=== PATIENT | male | born 1955 | race Caucasian/White ===

== ENCOUNTER 2016-10-11 16:24 | Inpatient (IN) | payer BC ==
[~2016-10-11] VITALS: Ht 167.6 cm; Wt 84.8 kg
[2016-10-11 16:24] VITALS: BP_SYST 163
[~2016-10-11 16:24] MED LIST: ALPR0.2583 PO; ASPI81TA2 PO; CLOP75TA2 PO; LISI10TA5 PO; METO-442 PO; SIMV40TA5 PO
[2016-10-11] MEDS ORDERED: ASPIRIN 81 MG TAB.CHEW PO ONE (16:30)
[2016-10-11] MEDS ORDERED: FINA5TAB3 PO (16:37)
[2016-10-11] MEDS ORDERED: LOSA50TA3 PO (16:37)
[2016-10-11 16:47] LABS: BASOPHILS # (AUTO) 0.1 K/uL (0.0-0.2); BASOPHILS % (AUTO) 0.9 % (0.0-2.0); EOSINOPHILS # (AUTO) 0.1 K/uL (0.0-0.4); EOSINOPHILS % (AUTO) 1.6 % (0.0-4.0); HEMATOCRIT 47.6 % (36-54); HEMOGLOBIN 15.6 g/dL (14.0-18.0); LYMPHOCYTES # (AUTO) 3.2 K/uL (1.0-5.5); MEAN CORPUSCULAR HEMOGLOBIN 29 pg (27-31); MEAN CORPUSCULAR HGB CONC 33 % (32-36); MEAN CORPUSCULAR VOLUME 88 fL (79.0-98.0); MONOCYTES # (AUTO) 0.6 K/uL (0.0-1.0); MONOCYTES % (AUTO) 6.7 % (1.7-9.3); NEUTROPHILS # (AUTO) 5.1 K/uL (1.8-7.7); NEUTROPHILS % (AUTO) 55.8 % (40.0-70.0); PLATELET COUNT (AUTO) 224 K/uL (130-430); RED BLOOD CELL COUNT(AUTO) 5.41 MIL/uL (4.2-6.2); RED CELL DISTRIBUTION WIDTH 13.1 % (9.0-15.0); WHITE BLOOD COUNT (AUTO) 9.1 K/uL (4.8-10.8)
[2016-10-11 17:00] LABS: CALCIUM 9.3 mg/dL (8.4-11.0); CREATININE 1.59 mg/dL (0.55-1.30)
[2016-10-11 17:03] LABS: PROTHROMBIN TIME 10.4 SECS (9.5-12.5)
[2016-10-11 17:05] LABS: ALBUMIN 4.1 g/dL (3.4-4.8); TOTAL BILIRUBIN 0.8 mg/dL (0.0-1.0); TOTAL PROTEIN, SERUM 7.7 g/dL (6.4-8.3)
[2016-10-11] MEDS ORDERED: MORPHINE 2 MG/ML INJ. SYRINGE IVP PRN (18:00)
[2016-10-11] MEDS ORDERED: ONDANSETRON HCL 4 MG/2 ML VIAL IVP PRN (18:00)
[2016-10-11] MEDS ORDERED: ACETAMINOPHEN 325 MG TABLET PO PRN (18:00)
[2016-10-11] MEDS ORDERED: METOPROLOL TARTRATE 5 MG/5 ML VIAL IVP PRN (18:15)
[2016-10-11] MEDS ORDERED: NITROGLYCERIN 0.4 MG TAB.SUBL SL ONE (18:15)
[2016-10-11 18:53] VITALS: BP_SYST 150
[2016-10-11 19:21] VITALS: BP_SYST 150
[2016-10-11] MEDS ORDERED: ATORVASTATIN 20 MG TABLET PO SCH (21:00)
[2016-10-11 21:30] VITALS: BP_SYST 164
[2016-10-11] MEDS: HEPARIN SODIUM,PORCINE 5000 UNITS/ML VIAL SUBCUT SCH (21:33)
[2016-10-11 21:36] LABS: BILIRUBIN,URINE NEGATIVE (NEGATIVE); BLOOD, URINE NEGATIVE (NEGATIVE); CLARITY/URINE CLEAR (CLEAR); COLOR,URINE YELLOW (YELLOW); GLUCOSE,URINE NEGATIVE (NEGATIVE); KETONES,URINE NEGATIVE (NEGATIVE); LEUKOCYTE ESTERASE ,URINE NEGATIVE (NEGATIVE); NITRITE, URINE NEGATIVE (NEGATIVE); PH,URINE 5.5 (5.0-8.0); PROTEIN URINE NEGATIVE (NEGATIVE); UROBILINOGEN,URINE 0.2 (0.2-1.0)
[2016-10-11] MEDS ORDERED: METOPROLOL TARTRATE 25 MG TABLET PO ONE (22:00)
[2016-10-11] MEDS ORDERED: ALPRAZolam 0.25 MG TABLET PO PRN (22:00)
[2016-10-11] MEDS: ALPRAZolam 0.25 MG TABLET PO PRN ×2 (22:58→23:29)
[2016-10-11] MEDS ORDERED: ATORVASTATIN 20 MG TABLET PO ONE (23:30)
[2016-10-12 00:15] VITALS: BP_SYST 133
[2016-10-12 04:41] VITALS: BP_SYST 136
[2016-10-12 06:24] LABS: BASOPHILS % (AUTO) 0.4 % (0.0-2.0); EOSINOPHILS # (AUTO) 0.1 K/uL (0.0-0.4); EOSINOPHILS % (AUTO) 1.1 % (0.0-4.0); HEMOGLOBIN 14.9 g/dL (14.0-18.0); LYMPHOCYTES # (AUTO) 2.6 K/uL (1.0-5.5); LYMPHOCYTES % (AUTO) 28.9 % (20.5-51.5); MEAN CORPUSCULAR HEMOGLOBIN 29 pg (27-31); MEAN CORPUSCULAR HGB CONC 33 % (32-36); MEAN CORPUSCULAR VOLUME 88 fL (79.0-98.0); MONOCYTES # (AUTO) 0.6 K/uL (0.0-1.0); MONOCYTES % (AUTO) 6.7 % (1.7-9.3); NEUTROPHILS # (AUTO) 5.6 K/uL (1.8-7.7); NEUTROPHILS % (AUTO) 62.9 % (40.0-70.0); PLATELET COUNT (AUTO) 194 K/uL (130-430); RED BLOOD CELL COUNT(AUTO) 5.09 MIL/uL (4.2-6.2); RED CELL DISTRIBUTION WIDTH 12.7 % (9.0-15.0); WHITE BLOOD COUNT (AUTO) 8.9 K/uL (4.8-10.8)
[2016-10-12 06:54] LABS: CREATININE 1.27 mg/dL (0.55-1.30)
[2016-10-12 06:55] LABS: PHOSPHORUS 4.3 mg/dL (2.7-4.5)
[2016-10-12 08:00] VITALS: BP_SYST 124
[2016-10-12] MEDS ORDERED: PANTOPRAZOLE SODIUM 40 MG TAB PO SCH (09:00)
[2016-10-12] MEDS ORDERED: LOSARTAN POTASSIUM 50 MG TABLET (COZAAR) PO SCH (09:00)
[2016-10-12] MEDS ORDERED: METOPROLOL TARTRATE 50 MG TABLET PO SCH (09:00)
[2016-10-12] MEDS ORDERED: METOPROLOL TARTRATE 25 MG TABLET PO SCH (09:00)
[2016-10-12] MEDS ORDERED: ASPIRIN 81 MG TAB.CHEW PO SCH ×2 (09:00)
[2016-10-12] MEDS ORDERED: FINASTERIDE 5 MG TABLET (PROSCAR) PO SCH (09:00)
[2016-10-12] MEDS: HEPARIN SODIUM,PORCINE 5000 UNITS/ML VIAL SUBCUT SCH (10:03)
[2016-10-12 11:01] VITALS: BP_SYST 145
[2016-10-12] MEDS ORDERED: ATORVASTATIN 20 MG TABLET PO SCH (21:00)
== END 2016-10-12 14:45 | disposition short-term general hospital (02) | DRG 311 ==
LOC: SED 16:24 → STU 17:54
PROVIDERS: ADMIT Internal Medicine; ATTEND Internal Medicine
DX: I24.9 Acute ischemic heart disease, unspecified (principal); N17.9 Acute kidney failure, unspecified; I25.10 Atherosclerotic heart disease of native coronary artery without angina pectoris; I25.2 Old myocardial infarction; I12.9 Hypertensive chronic kidney disease with stage 1 through stage 4 chronic kidney disease, or unspecified chronic kidney disease; E78.5 Hyperlipidemia, unspecified; N40.0 Benign prostatic hyperplasia without lower urinary tract symptoms; N18.3 Chronic kidney disease, stage 3 (moderate); Z79.899 Other long term (current) drug therapy; Z95.5 Presence of coronary angioplasty implant and graft; Z82.49 Family history of ischemic heart disease and other diseases of the circulatory system
CPT/HCPCS: 36415; 71010; 76770; 80048; 80053; 80061; 81003; 83735-TC; 83880; 84100-TC; 84484; 85025; 85379; 85610-TC; 85730-TC; 93005; 93306; 99285; J1644